=== PATIENT | female | born 1975 | race Hispanic/Latino ===

== ENCOUNTER 2023-11-23 08:06 | Outpatient (CLI) | payer BC | END 2023-11-23 08:07 | disposition home or self-care (01) | LOC: CSHMAMMO 08:06 | PROVIDERS: ATTEND Nurse Practitioner Family | DX: Z12.31 Encounter for screening mammogram for malignant neoplasm of breast (principal); Z91.89 Other specified personal risk factors, not elsewhere classified | CPT/HCPCS: 77063; 77067 ==